=== PATIENT | female | born 2000 | race African-American/Black ===

== ENCOUNTER 2022-11-06 14:38 | Outpatient (CLI) | payer BC, OTHER | END 2022-11-06 14:39 | disposition home or self-care (01) | LOC: CSHULT 14:38 | PROVIDERS: ATTEND Family Medicine | DX: Z34.02 Encounter for supervision of normal first pregnancy, second trimester (principal) | CPT/HCPCS: 76805 ==

== ENCOUNTER 2022-11-22 09:05 | Emergency (ER) | payer BC, OTHER ==
[2022-11-22 13:11] LABS: SARS-CoV-2 NAA Rapid Test Not Detected (NotDetected)
== END 2022-11-22 12:32 | disposition home or self-care (01) ==
LOC: CSHERS 09:05
DX: O99.512 Diseases of the respiratory system complicating pregnancy, second trimester (principal); J18.9 Pneumonia, unspecified organism; O99.02 Anemia complicating childbirth; D64.9 Anemia, unspecified; Z3A.23 23 weeks gestation of pregnancy; Z20.822 Contact with and (suspected) exposure to COVID-19
CPT/HCPCS: 71045

== ENCOUNTER 2023-02-17 11:17 | Day surgery (SDC) | payer BC, OTHER | END 2023-02-17 19:05 | disposition home or self-care (01) | LOC: CSHLD/OP 11:17 | PROVIDERS: ATTEND Family Medicine | DX: Z36.89 Encounter for other specified antenatal screening (principal); O36.5990 Maternal care for other known or suspected poor fetal growth, unspecified trimester, not applicable or unspecified; Z3A.00 Weeks of gestation of pregnancy not specified | CPT/HCPCS: 59025; 76815; 76819; 93976 ==

== ENCOUNTER 2023-02-27 15:02 | Inpatient (IN) | payer BC, OTHER ==
[2023-02-27 21:41] VITALS: BMI 24.2
[2023-02-27] MEDS ORDERED: Acetaminophen 325 MG TAB PO SCH (22:30)
[2023-02-28] MEDS ORDERED: NS w/ Oxytocin 30 units 500 ML ONE (08:38)
[2023-02-28 09:18] LABS: Hemoglobin 10.1 g/dL (12.0-15.5); Mean Corpuscular HGB CONC 33.2 g/dL (32.0-36.0); Mean Corpuscular Hemoglobin 29.8 pg (27.0-33.0); Mean Corpuscular Volume 89.7 fl (81.6-98.3); Mean Platelet Volume 9.4 fl (7.4-10.4); Platelet Count 327 10x3/uL (150-450); RBC Distribution Width 12.7 % (11.5-14.5); Red Blood Cell (RBC) Count 3.39 10x6/uL (3.90-5.03); White Blood Cell (WBC) Count 8.5 10x3/uL (3.5-10.5)
[2023-02-28 09:54] LABS: Syphilis Antibody Nonreactive (Nonreactive); Syphilis Antibody Index 0.03 S/CO (<1.00 Non-Reactive)
[2023-02-28 09:55] LABS: HBSAg Index 0.18 S/CO (0-0.99); Hep B Surf Ag - L&D Non-Reactive S/CO (NonReactive)
[2023-02-28] MEDS ORDERED: Tranexamic Acid 1,000 MG/10 ML VIAL IVP PRN (13:39)
[2023-02-28] MEDS ORDERED: Misoprostol 200 MCG TAB PR PRN (13:39)
[2023-02-28] MEDS ORDERED: Famotidine/PF 20 mg/2ml Vial SLOW IVP PRN (13:39)
[2023-02-28] MEDS ORDERED: Carboprost 250 MCG/ML AMP IM PRN (13:39)
[2023-02-28] MEDS ORDERED: hydrALAZINE 20 MG/ML VIAL SLOW IVP PRN ×2 (13:39→20:33)
[2023-02-28] MEDS ORDERED: Methylergonovine 0.2 MG/ML VIAL IM PRN (13:39)
[2023-02-28] MEDS ORDERED: Ondansetron PF 4 MG/2 ML Vial IVP PRN ×3 (13:39→20:33)
[2023-02-28] MEDS ORDERED: Diphenoxylate HCl/Atropine Tablet PO PRN (13:39)
[2023-02-28] MEDS ORDERED: Promethazine HCl 25 MG/ML VIAL IM PRN ×3 (13:39→20:33)
[2023-02-28] MEDS ORDERED: Bicitra 30 ML UDCUP PO PRN (13:39)
[2023-02-28] MEDS ORDERED: CEFAZOLIN 2 GM in Sodium Chloride 0.9% 100 ML IVPB SCH (13:45)
[2023-02-28] MEDS ORDERED: Lactated Ringer's 1,000 ML IV SCH (13:45)
[2023-02-28] MEDS ORDERED: NS w/ Oxytocin 30 units 500 ML IV SCH (13:45)
[2023-02-28] MEDS ORDERED: Morphine PF 10 MG/10 ML VIAL ONE (17:01)
[2023-02-28] MEDS ORDERED: fentaNYL 50 mcg/mL 1 mL Vial ONE ×2 (17:02→20:02)
[2023-02-28] MEDS ORDERED: Ondansetron PF 4 MG/2 ML Vial ONE (17:06)
[2023-02-28] MEDS ORDERED: Oxytocin 10 UNITS/ML VIAL ONE (17:06)
[2023-02-28] MEDS ORDERED: Promethazine HCl 25 MG/ML VIAL ONE (17:47)
[2023-02-28] MEDS ORDERED: Promethazine HCl 25 MG SUPP PR PRN (18:15)
[2023-02-28] MEDS ORDERED: Naloxone HCl 0.4 mg/ml Vial IV PRN (18:15)
[2023-02-28] MEDS ORDERED: Meperidine HCl/PF 25 MG/ML VIAL SLOW IVP PRN (18:15)
[2023-02-28] MEDS ORDERED: Ketorolac Tromethamine 30 MG/ML VIAL IVP PRN (18:15)
[2023-02-28] MEDS ORDERED: HYDROmorphone 2 MG/ML VIAL SLOW IVP PRN (18:15)
[2023-02-28] MEDS ORDERED: Naloxone HCl 0.4 mg/ml Vial IVP PRN ×2 (18:15)
[2023-02-28] MEDS ORDERED: Communication Order-Pharmacy FS SCH (18:15)
[2023-02-28] MEDS ORDERED: Moisturizing Cream (Eucerin) 113 GM JAR TOP PRN (18:15)
[2023-02-28] MEDS ORDERED: Fentanyl 100 MCG/2 ML VIAL SLOW IVP PRN (18:15)
[2023-02-28] MEDS ORDERED: Ketorolac Tromethamine 30 MG/ML VIAL IVP SCH (18:15)
[2023-02-28] MEDS ORDERED: Ondansetron HCl/PF 4 MG/2 ML Vial IVP PRN (18:15)
[2023-02-28] MEDS ORDERED: diphenhydrAMINE 50 MG/ML VIAL IVP PRN (18:15)
[2023-02-28] MEDS ORDERED: Lanolin Ointment 7 GM TUBE TOP PRN (20:33)
[2023-02-28] MEDS ORDERED: Bisacodyl 10 MG SUPP PR PRN (20:33)
[2023-02-28] MEDS ORDERED: Boostrix 0.5 ML (Tdap) VIAL (>/=7 yrs of age) IM ONE (20:33)
[2023-02-28] MEDS ORDERED: diphenhydrAMINE 25 MG CAP PO PRN (20:33)
[2023-02-28] MEDS: Ketorolac Tromethamine 30 MG/ML VIAL IVP SCH (23:01)
[2023-03-01 05:27] LABS: Hemoglobin 9.5 g/dL (12.0-15.5); Mean Corpuscular HGB CONC 33.6 g/dL (32.0-36.0); Mean Corpuscular Hemoglobin 29.6 pg (27.0-33.0); Mean Corpuscular Volume 88.2 fl (81.6-98.3); Mean Platelet Volume 9.1 fl (7.4-10.4); Platelet Count 278 10x3/uL (150-450); RBC Distribution Width 12.6 % (11.5-14.5); Red Blood Cell (RBC) Count 3.21 10x6/uL (3.90-5.03); White Blood Cell (WBC) Count 10.6 10x3/uL (3.5-10.5)
[2023-03-01] MEDS: Ketorolac Tromethamine 30 MG/ML VIAL IVP SCH ×3 (06:13→17:48)
[2023-03-01] MEDS: Ferrous Sulfate 325 MG TAB PO SCH ×3 (07:24→21:46)
[2023-03-01] MEDS: Docusate 100 MG CAP PO SCH ×3 (07:24→21:47)
[2023-03-01] MEDS: Prenatal Vitamin 1 TAB PO SCH (08:06)
[2023-03-01] MEDS: HYDROcodone/Acetaminophen 5/325 mg Tablet PO PRN ×3 (08:07→16:40)
[2023-03-01] MEDS: Simethicone Chewable 80 MG TAB PO PRN (21:47)
[2023-03-01] MEDS: Ibuprofen 800 MG TAB PO SCH (23:40)
[2023-03-02] MEDS: HYDROcodone/Acetaminophen 5/325 mg Tablet PO PRN ×4 (01:16→20:50)
[2023-03-02] MEDS: Ibuprofen 800 MG TAB PO SCH ×3 (07:45→23:29)
[2023-03-02] MEDS: Prenatal Vitamin 1 TAB PO SCH ×2 (07:46→07:47)
[2023-03-02] MEDS: Docusate 100 MG CAP PO SCH ×2 (07:46→20:49)
[2023-03-02] MEDS: Ferrous Sulfate 325 MG TAB PO SCH ×2 (07:46→20:50)
[2023-03-02] MEDS: Simethicone Chewable 80 MG TAB PO PRN (23:29)
[2023-03-03] MEDS: HYDROcodone/Acetaminophen 5/325 mg Tablet PO PRN ×2 (06:19→12:16)
[2023-03-03] MEDS: Ibuprofen 800 MG TAB PO SCH (06:19)
[2023-03-03 07:41] VITALS: BP 118/76; TEMP 98.2
[2023-03-03] MEDS: Ferrous Sulfate 325 MG TAB PO SCH (08:03)
[2023-03-03] MEDS: Docusate 100 MG CAP PO SCH (08:04)
[2023-03-03] MEDS ORDERED: Ibuprofen 800 MG TAB PO SCH (14:00)
== END 2023-03-03 18:50 | disposition home or self-care (01) | DRG 788 ==
LOC: CSHLD/OP 15:02 → CSHLD 23:44 → OBSVTOIN 02-28 13:40 → CSHPP 02-28 20:39
PROVIDERS: ADMIT Family Medicine; ATTEND Family Medicine
PROC: 10D00Z1 Extraction of Products of Conception, Low, Open Approach (ICD-10-PCS; principal; 2023-02-28)
DX: O36.5930 Maternal care for other known or suspected poor fetal growth, third trimester, not applicable or unspecified (principal); Z3A.36 36 weeks gestation of pregnancy; Z37.0 Single live birth; O76 Abnormality in fetal heart rate and rhythm complicating labor and delivery; Z79.899 Other long term (current) drug therapy; Z91.013 Allergy to seafood; D64.9 Anemia, unspecified; O99.02 Anemia complicating childbirth
CPT/HCPCS: 36415; 51702; 76815; 76819; 85027; 86780; 86850; 86900; 86901; 87340; 88307; 99285; J1885; J2274; J2405; J2550; J2590; J3010; J3490; S0028

== ENCOUNTER 2023-07-30 18:20 | Emergency (ER) | payer BC, OTHER | END 2023-07-30 18:58 | disposition home or self-care (01) | LOC: CSHERS 18:20 | DX: H60.93 Unspecified otitis externa, bilateral (principal) | CPT/HCPCS: 99282 ==

== ENCOUNTER 2023-08-05 14:42 | Emergency (ER) | payer BC | END 2023-08-05 16:45 | disposition home or self-care (01) | LOC: CSHERS 14:42 | DX: S60.222A Contusion of left hand, initial encounter (principal); W23.1XXA Caught, crushed, jammed, or pinched between stationary objects, initial encounter ==